=== PATIENT | male | born 1990 | race Caucasian/White ===

== ENCOUNTER 2022-05-26 12:00 | Inpatient (IN) | payer OTHER ==
[2022-05-27 09:36] VITALS: BMI 40.8
[2022-06-02] MEDS ORDERED: ROCURONIUM BROMIDE 50 MG/5 ML SYRINGE ONE ×2 (11:21→13:42)
[2022-06-02] MEDS ORDERED: PROPOFOL 20 ML ONE ×2 (11:21→15:08)
[2022-06-02] MEDS ORDERED: MIDAZOLAM HCL 2 MG/2 ML SINGLE DOSE VIAL ONE (11:25)
[2022-06-02] MEDS ORDERED: BUPIVACAINE HCL/PF 2.5 MG/ML - 30 ML VIAL IJ ONE (11:36)
[2022-06-02] MEDS ORDERED: SUCCINYLCHOLINE CHLORIDE 200 MG/10 ML SYRINGE ONE (12:44)
[2022-06-02] MEDS ORDERED: HYDROmorphone HCL/PF 1 MG/ML VIAL ONE (15:11)
[2022-06-02] MEDS ORDERED: GLYCOPYRROLATE 0.2 MG/1 ML VIAL ONE (15:21)
[2022-06-02] MEDS ORDERED: NEOSTIGMINE METHYLSULFATE 0.5 MG/1 ML - 10 ML MDV ONE (15:21)
[2022-06-02] MEDS ORDERED: ONDANSETRON 4 MG/2 ML VIAL ONE (15:24)
[2022-06-02] MEDS ORDERED: BACITRACIN ZINC 15 GM TUBE TOPICAL OINTMENT ONE (15:35)
[2022-06-02] MEDS ORDERED: SODIUM CHLORIDE 1,000 ML IV SCH (15:45)
[2022-06-02] MEDS ORDERED: ONDANSETRON 4 MG/2 ML VIAL IVPUSH PRN ×2 (15:45→15:53)
[2022-06-02] MEDS ORDERED: LACTATED RINGERS SOLUTION 1,000 ML IV SCH (16:00)
[2022-06-02] MEDS: METOCLOPRAMIDE HCL INJECTION 10 MG/2 ML VIAL IVPUSH SCH ×3 (16:12→21:22)
[2022-06-02] MEDS: ACETAMINOPHEN 1000 MG/100 ML BAG IVPB ONE ×2 (16:15→18:55)
[2022-06-02] MEDS ORDERED: FENTANYL CITRATE/PF 50 MCG/ML VIAL ONE (16:18)
[2022-06-02 17:03] LABS: HEMATOCRIT 41.3 % (35.4-49); HEMOGLOBIN 14.5 G/dL (11.7-16.9); MCH 30.8 pg (25.7-33.7); MCHC 35.2 g/dl (32.0-35.9); MEAN CELL VOLUME 87.7 fl (80-96); MEAN PLT VOLUME 7.9 fl (7.5-11.1); PLATELET COUNT 286.7 10^3/uL (134-434); RBC 4.71 10^6/uL (4.00-5.60); RDW 13.5 % (11.9-15.9); WHITE BLOOD COUNT 15.1 10^3/uL (4.0-10.8)
[2022-06-02 17:11] LABS: ALBUMIN 3.8 g/dl (3.4-5.0); BILIRUBIN,TOTAL 0.5 mg/dl (0.2-1); CALCIUM 8.5 mg/dl (8.5-10); CREATININE 0.9 mg/dl (0.55-1.3); TOT PROT 7.4 g/dl (6.4-8.2)
[2022-06-02] MEDS: HYDROmorphone HCl 2 MG/ML VIAL IVPB PRN ×2 (17:11→21:18)
[2022-06-02] MEDS: FAMOTIDINE 20 MG/50 ML IVPB 20 MG/50 ML MG IVPB SCH (21:21)
[2022-06-02 22:02] LABS: INR 1.17 (0.83-1.09); PROTHROMBIN TIME (PATIENT) 13.5 SEC (9.7-13.0)
[2022-06-02 22:17] LABS: ALBUMIN 3.8 g/dl (3.4-5.0); BILIRUBIN,TOTAL 0.7 mg/dl (0.2-1); CALCIUM 8.8 mg/dl (8.5-10); CREATININE 0.9 mg/dl (0.55-1.3); TOT PROT 7.4 g/dl (6.4-8.2)
[2022-06-02 22:26] LABS: HEMATOCRIT 40.9 % (35.4-49); HEMOGLOBIN 14.4 G/dL (11.7-16.9); MCH 30.5 pg (25.7-33.7); MCHC 35.2 g/dl (32.0-35.9); MEAN CELL VOLUME 86.6 fl (80-96); PLATELET COUNT 284.4 10^3/uL (134-434); RBC 4.72 10^6/uL (4.00-5.60); RDW 14.1 % (11.9-15.9); WHITE BLOOD COUNT 15.8 10^3/uL (4.0-10.8)
[2022-06-02 23:34] LABS: PLATELET ESTIMATE ADEQUATE
[2022-06-03] MEDS: HYDROmorphone HCl 2 MG/ML VIAL IVPB PRN ×4 (03:54→20:12)
[2022-06-03] MEDS: METOCLOPRAMIDE HCL INJECTION 10 MG/2 ML VIAL IVPUSH SCH ×4 (06:26→21:18)
[2022-06-03 08:42] LABS: ALBUMIN 3.5 g/dl (3.4-5.0); BILIRUBIN,TOTAL 0.8 mg/dl (0.2-1); CALCIUM 8.5 mg/dl (8.5-10); CREATININE 0.8 mg/dl (0.55-1.3); TOT PROT 7.1 g/dl (6.4-8.2)
[2022-06-03 08:45] LABS: HEMATOCRIT 39.1 % (35.4-49); HEMOGLOBIN 13.5 G/dL (11.7-16.9); MCH 30.1 pg (25.7-33.7); MCHC 34.6 g/dl (32.0-35.9); MEAN CELL VOLUME 86.8 fl (80-96); MEAN PLT VOLUME 8.4 fl (7.5-11.1); PLATELET COUNT 270.3 10^3/uL (134-434); RDW 13.9 % (11.9-15.9); WHITE BLOOD COUNT 16.5 10^3/uL (4.0-10.8)
[2022-06-03] MEDS: FAMOTIDINE 20 MG/50 ML IVPB 20 MG/50 ML MG IVPB SCH ×2 (09:14→21:18)
[2022-06-03] MEDS ORDERED: ACETAMINOPHEN 325 MG TABLET (FP) PO PRN (10:40)
[2022-06-03] MEDS: ENOXAPARIN NA (PORCINE) 30 MG/0.3 ML DISP.SYRIN SQ SCH ×2 (14:47→21:18)
[2022-06-03] MEDS: SODIUM CHLORIDE 1,000 ML IV SCH (15:01)
[2022-06-04] MEDS: METOCLOPRAMIDE HCL INJECTION 10 MG/2 ML VIAL IVPUSH SCH ×4 (04:32→21:09)
[2022-06-04] MEDS: HYDROmorphone HCl 2 MG/ML VIAL IVPB PRN ×3 (08:31→21:09)
[2022-06-04 08:41] LABS: HEMATOCRIT 37.2 % (35.4-49); HEMOGLOBIN 12.9 G/dL (11.7-16.9); MCH 30.3 pg (25.7-33.7); MCHC 34.7 g/dl (32.0-35.9); MEAN CELL VOLUME 87.3 fl (80-96); MEAN PLT VOLUME 8.2 fl (7.5-11.1); PLATELET COUNT 245.5 10^3/uL (134-434); RBC 4.26 10^6/uL (4.00-5.60); RDW 13.5 % (11.9-15.9); WHITE BLOOD COUNT 13.2 10^3/uL (4.0-10.8)
[2022-06-04 08:51] LABS: ALBUMIN 3.4 g/dl (3.4-5.0); BILIRUBIN,TOTAL 1.1 mg/dl (0.2-1); CALCIUM 8.7 mg/dl (8.5-10); CREATININE 0.9 mg/dl (0.55-1.3); TOT PROT 6.8 g/dl (6.4-8.2)
[2022-06-04] MEDS: FAMOTIDINE 20 MG/50 ML IVPB 20 MG/50 ML MG IVPB SCH ×2 (09:14→21:09)
[2022-06-04] MEDS: ENOXAPARIN NA (PORCINE) 30 MG/0.3 ML DISP.SYRIN SQ SCH ×2 (09:14→21:46)
[2022-06-04] MEDS: SODIUM CHLORIDE 1,000 ML IV SCH (11:36)
[2022-06-05] MEDS: HYDROmorphone HCl 2 MG/ML VIAL IVPB PRN (00:45)
[2022-06-05] MEDS: METOCLOPRAMIDE HCL INJECTION 10 MG/2 ML VIAL IVPUSH SCH ×2 (04:00→09:43)
[2022-06-05 06:40] VITALS: RESP 18
[2022-06-05 09:42] VITALS: BP 130/80; PULSE 91; TEMP 98.2
[2022-06-05] MEDS: FAMOTIDINE 20 MG/50 ML IVPB 20 MG/50 ML MG IVPB SCH (09:42)
[2022-06-05] MEDS: ENOXAPARIN NA (PORCINE) 30 MG/0.3 ML DISP.SYRIN SQ SCH (09:42)
[2022-06-05] MEDS: SODIUM CHLORIDE 1,000 ML IV SCH (09:52)
== END 2022-06-05 13:52 | disposition home or self-care (01) | DRG 621 ==
LOC: FM/S 06-02 10:47
PROVIDERS: ADMIT Surgery; ATTEND Surgery
PROC: 0FB24ZX Excision of Left Lobe Liver, Percutaneous Endoscopic Approach, Diagnostic (ICD-10-PCS; 2022-06-02)
PROC: 0DB64Z3 Excision of Stomach, Percutaneous Endoscopic Approach, Vertical (ICD-10-PCS; principal; 2022-06-02 13:13)
DX: E66.01 Morbid (severe) obesity due to excess calories (principal); G47.33 Obstructive sleep apnea (adult) (pediatric); R16.0 Hepatomegaly, not elsewhere classified; R07.89 Other chest pain; R00.0 Tachycardia, unspecified; Z68.41 Body mass index [BMI] 40.0-44.9, adult
CPT/HCPCS: 36415; 74240-TC-FY; 80053; 82550; 84484; 85025; 85027; 85379; 85610; 85730; 86850; 86900; 86901; 88307-TC; 93005; 93010; 93306-TC; 94660; 94760

== ENCOUNTER 2023-03-02 04:48 | Day surgery (SDC) | payer OTHER ==
[2023-02-22 14:28] VITALS: BMI 31.4
[2023-03-02] MEDS ORDERED: FENTANYL CITRATE/PF 50 MCG/ML VIAL ONE ×3 (07:19→11:14)
[2023-03-02] MEDS ORDERED: MIDAZOLAM HCL 2 MG/2 ML SINGLE DOSE VIAL ONE ×2 (07:19→11:04)
[2023-03-02] MEDS ORDERED: ELECTROLYTE-148 SOLN 1,000 ML IV SCH (11:15)
[2023-03-02] MEDS ORDERED: ROCURONIUM BROMIDE 50 MG/5 ML SYRINGE ONE (11:17)
[2023-03-02 12:43] VITALS: RESP 16
[2023-03-02 12:48] VITALS: BP 126/85; PULSE 52; TEMP 97.4
== END 2023-03-02 12:25 | disposition home or self-care (01) ==
LOC: JASU-SURG 04:48
PROVIDERS: ATTEND Urology
PROC: 0TF3XZZ Fragmentation in Right Kidney Pelvis, External Approach (ICD-10-PCS; principal; 2023-03-02 09:30)
DX: N20.0 Calculus of kidney (principal)